=== PATIENT | female | born 1960 ===

== ENCOUNTER → 2018-01-25 | Emergency (ER) | payer OTHER ==
[~2018-01-25] VITALS: Ht 160 cm; Wt 93.0 kg
[~2018-01-25] MED LIST: AVAPRO150 MG; SYNTHROID112 MCG; SYNTHROID125 MCG
== END | disposition home or self-care (01) ==
LOC: ER 11:44
DX: S13.4XXA Sprain of ligaments of cervical spine, initial encounter (principal); V49.09XA Driver injured in collision with other motor vehicles in nontraffic accident, initial encounter; Y93.89 Activity, other specified; Y92.488 Other paved roadways as the place of occurrence of the external cause; Y99.8 Other external cause status